=== PATIENT | male | born 2000 | race Caucasian/White ===

== ENCOUNTER 2018-06-14 20:36 | Emergency (ER) | payer SELFPAY ==
[~2018-06-14] VITALS: Ht 180.3 cm; Wt 83.9 kg
[2018-06-14 20:46] VITALS: BP 128/82
--- NOTE | 2018-06-14 20:48 | NUR ---
PT AMBULATORY TO ER LOBBY W/ STEADY GAIT IN STABLE CONDITION.
--- NOTE | 2018-06-14 21:12 | NUR ---
PT TAKEN TO BED 3
--- NOTE | 2018-06-14 21:17 | NUR ---
Dr. Patel evaluating patient at bedside.
[2018-06-14] MEDS ORDERED: LIDOCAINE/EPI 1% 1:100000 20 ML VIAL INJ ONE (21:20)
[2018-06-14] MEDS ORDERED: LIDOCAINE VISCOUS 2% 20 ML UDC ONE ×2 (21:28→21:29)
--- NOTE | 2018-06-14 21:32 | NUR ---
18 Y/O M W/C/O RIGHT ELBOW LACERATION X 2 HOURS AGO S/P MECHANICAL FALL OFF OF SKATEBOARD. BLEEDING WELL CONTROLLED AT THIS TIME. PT DENIES N/V/D; AAOX4, PERRL, WITH EVEN AND STEADY GAIT; LUNGS CLEAR BL, BREATHING UNLABORED; HR EVEN AND REGULAR, BL PERIPHERAL PULSES PRESENT; PT DENIES ANY FEVER, CP, SOB, OR COUGH AT THIS TIME; PT STATES 9/10 PAIN AT THIS TIME; VSS; PATIENT POSITIONED FOR COMFORT; HOB ELEVATED; BEDRAILS UP X2; BED DOWN.
[2018-06-14] MEDS ORDERED: LIDOCAINE/EPI 2% 1:100000 20 ML VIAL INJ ONE (21:37)
[2018-06-14] MEDS ORDERED: LIDOCAINE/EPI MPF 2%1:200000 10 ML VIAL INJ ONE (21:45)
[2018-06-14 22:15] VITALS: BP 122/76
--- NOTE | 2018-06-14 22:25 | NUR ---
Patient discharged with v/s stable. Written and verbal after care instructions given and explained. Patient alert, oriented and verbalized understanding of instructions. Ambulatory with steady gait. All questions addressed prior to discharge. ID band removed. Patient advised to follow up with PMD. Rx of ibu given. Patient educated on indication of medication including possible reaction and side effects. Opportunity to ask questions provided and answered.
== END 2018-06-14 22:25 | disposition home or self-care (01) ==
LOC: MED 20:36
DX: S51.012A Laceration without foreign body of left elbow, initial encounter (principal); V00.131A Fall from skateboard, initial encounter; Y93.51 Activity, roller skating (inline) and skateboarding; Y92.89 Other specified places as the place of occurrence of the external cause; Y99.8 Other external cause status
CPT/HCPCS: 12002; 99283; J2001; 12001

== ENCOUNTER 2018-06-24 21:02 | Emergency (ER) | payer SELFPAY ==
[~2018-06-24] VITALS: Ht 180.3 cm; Wt 83.9 kg
[2018-06-24 21:03] VITALS: BP 139/63
--- NOTE | 2018-06-24 21:05 | NUR ---
PT TAKEN TO BED 7
--- NOTE | 2018-06-24 21:05 | NUR ---
PT PRESENTS TO ED ED FOR SUTURE REMOVAL OF X3 SUTURES TO RIGHT ELBOW. FELL ON SKATEBOARD X10 DAYS AGO. WOUND WELL APPROXIMATED. SKIN INTACT. SCAB PRESENT. NO REDNESS, NO EDEMA, NO DRAINAGE. 0/10 PAIN. CMS INTACT. VSS. POSITIONED IN BED FOR COMFORT. ER MD AWARE. CONTINUE TO MONITOR.
--- NOTE | 2018-06-24 21:24 | NUR ---
PA EVALUATING PATIENT
--- NOTE | 2018-06-24 21:30 | NUR ---
X3 SUTURES REMOVED FROM RIGHT ELBOW. AREA CLEANSED WITH NS. LEFT OPEN TO AIR. PT TOLERATED PROCEDURE WELL. VSS. CONTINUE TO MONITOR.
[2018-06-24 21:42] VITALS: BP 122/78
--- NOTE | 2018-06-24 21:42 | NUR ---
Patient discharged with v/s stable. Written and verbal after care instructions given and explained. Patient verbalized understanding. Ambulatory with steady gait. All questions addressed prior to discharge. Advised to follow up with PMD.
== END 2018-06-24 21:42 | disposition home or self-care (01) ==
LOC: MED 21:02
DX: S51.011D Laceration without foreign body of right elbow, subsequent encounter (principal); X58.XXXD Exposure to other specified factors, subsequent encounter
CPT/HCPCS: 99283